=== PATIENT | female | born 1960 | race Caucasian/White ===

== ENCOUNTER 2022-07-27 07:30 | Outpatient (RCR) | payer OTHER, SELFPAY | END 2022-07-27 08:13 | disposition home or self-care (01) | PROVIDERS: PCP Family Medicine; Visit Provider Family Medicine | DX: M54.12 Radiculopathy, cervical region (principal); Z51.89 Encounter for other specified aftercare | CPT/HCPCS: 97012; 97110; 97112; 97140; 97161 ==

== ENCOUNTER 2023-04-26 08:00 | Outpatient (RCR) | payer OTHER, SELFPAY | END 2023-04-26 14:21 | disposition home or self-care (01) | PROVIDERS: PCP Family Medicine; Visit Provider Physician Assistant | DX: S69.92XD Unspecified injury of left wrist, hand and finger(s), subsequent encounter (principal); Z51.89 Encounter for other specified aftercare | CPT/HCPCS: 97035; 97110; 97140; 97165; 97535; X5282 ==

== ENCOUNTER 2024-01-18 02:28 | Emergency (ER) | payer OTHER, SELFPAY ==
[2024-01-18 02:37] VITALS: BP 145/84; PULSE 75; RESP 18; TEMP 36.7; O2SAT 97; BMI 32.4
--- NOTE | 2024-01-18 02:42 | ED.GENADULT ---
HPI - General Adult General Chief complaint: Hip Injury/Pain Stated complaint: did something to her L Hip - Unable to walk Time Seen by Provider: 01/18/24 02:36 History of Present Illness HPI narrative: CC: Left Hip Pain pt. woke up around 0030 and was doing some laundry when she felt a rip on her left thigh. partial weight bearing . denies fevers. 63-year-old woman presenting to the emergency depart with complaint of left thigh pain. No specific trauma but had been flexing, stooping, bending while doing some laundry. [place] a ?rip? in her left thigh area. No rash. Again no fall. Has not had injury otherwise. Finding it very difficult to even walk on it at this time. She has not been having significant back back issues. Pain is not radiating past the knee. Related Data Home Medications ?Medication ?Instructions ?Recorded ?Confirmed celecoxib 200 mg capsule 200 mg PO BID 01/18/24 01/18/24 conjugated estrogens 0.3 mg tablet 0.3 mg PO DAILY 01/18/24 01/18/24 (Premarin) diltiazem HCl 300 mg capsule,24 300 mg PO DAILY 01/18/24 01/18/24 hr,extended release sertraline 100 mg tablet 100 mg PO Q24H 01/18/24 01/18/24 Allergies Allergy/AdvReac Type Severity Reaction Status Date / Time Penicillins Allergy Mild Rash Verified 01/18/24 02:39 Review of Systems Status of ROS: Reports: 6 or more systems reviewed and unremarkable except as noted in History and below [facility] Social History Smoking Status: Never smoker Second hand tobacco smoke exposure: No How often do you have a drink containing alcohol: never AUDIT-C Alcohol total score: 0 Non-prescribed substance use: denies use Exam Narrative: Exam Narrative: Pleasant. Clearly very uncomfortable. Skin is warm and dry. I do not appreciate any swelling or erythema. Is reluctant with significant pain with any movement of her left hip. I do not feel any defect to palpation. Not clearly tender over the greater trochanter nor the SI joint. Good pulses/well-perfused distally. Const: Vital Signs, click to edit/add: Vital Signs - 24 hr 01/18/24 02:37 Temperature 98.1 F Pulse Rate [Right Pulse Oximeter] 75 Respiratory Rate 18 Blood Pressure [Ri ght Upper Arm] 145/84 H Pulse Oximetry 97 Oxygen Delivery Me thod Room Air Documenting provider has reviewed patient's vital signs: yes Course Vital Signs Vital signs: Initial Vital Signs Temperature 98.1 F 01/18/24 02:37 Temperature Source Temporal Artery Scan 01/18/24 02:37 Pulse Rate 75 01/18/24 02:37 Respiratory Rate 18 01/18/24 02:37 Blood Pressure 145/84 H 01/18/24 02:37 Blood Pressure Mean 104 01/18/24 02:37 Blood Pressure Position Sitting 01/18/24 02:37 Pulse Oximetry 97 01/18/24 02:37 Oxygen Delivery Method Room Air 01/18/24 02:37 Vital Signs Temperature 98.1 F 01/18/24 02:37 Pulse Rate 75 01/18/24 02:37 Respiratory Rate 18 01/18/24 02:37 Blood Pressure 145/84 H 01/18/24 02:37 Pulse Oximetry 97 01/18/24 02:37 Oxygen Delivery Method Room Air 01/18/24 02:37 Temperature 98.1 F 01/18/24 04:01 Pulse Rate 79 01/18/24 04:01 Respiratory Rate 18 01/18/24 04:01 Blood Pressure 135/74 01/18/24 04:01 Pulse Oximetry 96 01/18/24 03:56 Oxygen Delivery Method Room Air 01/18/24 03:56 Medications Administered Medications: Discontinued Medications Generic Name Dose Route Start Last Admin Trade Name Freq PRN Reason Stop Dose Admin Hydromorphone HCl 1 mg 01/18/24 02:54 01/18/24 03:02 Hydromorphone 0.5 Mg/0.5 Ml Inj IM 01/18/24 02:55 1 mg ONCE ONE Administration Medical Decision Making MDM Narrative Medical decision making narrative: Is quite anxious for immediate relief of her pain. I would offer injection of hydromorphone. Can do x-ray looking for any sort of avulsion fracture and confirming location of joint. I am wondering if may have happened here is result of rotational movement or flexion of the thigh resulting in resolved subluxation. Then subsequent muscle spasming. Appears to be in joint at this time. She is not discretely tender at hip flexors. X-ray of the left hip is unremarkable by my read. On reassessment is improved. More relaxed. I do not know that all be fully able to evaluate this hip at this time in the emergency department. Will need follow-up if this continues to be an issue. See patient discharge plan for further discussion. Discharge Plan Discharge Clinical Impression: Acute hip pain Patient Disposition: Home w/ Parent or Adult Condition: Stable Additional Instructions: Can use these crutches for comfort until further recommendations on follow-up. Since you have a relationship with Dr. Saenz, I think following up with him is an excellent idea. You could also be seen sooner with your primary if you need further help with pain management and/or it might be easier to do a better assessment at that point. I like those ice bags with the screw top lid--fill with ice and water. I would ice sore area 2-3 times daily over the next few days. [place] from [employer]. On the days you are using the [place], you might want to take a senna once or twice daily Can also take up to 800 mg of ibuprofen or up to 1000 mg of acetaminophen per dose. Alternative to the ibuprofen might be up to 500 mg naproxen 2 times daily. Prescriptions: No Action celecoxib 200 mg capsule 200 mg PO BID sertraline 100 mg tablet 100 mg PO Q24H diltiazem HCl 300 mg capsule,extended release 24 hr 300 mg PO DAILY Premarin 0.3 mg tablet 0.3 mg PO DAILY Follow Up/Referrals: Julia Chin MD [Primary Care Provider] - Stand Alone Forms: [employer] Info Instructions
--- NOTE | 2024-01-18 02:54 | CRLHL7_ITS ---
For Patients: As a result of the Century Cures Act, medical imaging exams and procedure reports are released immediately into your electronic medical record. You may view this report before your referring provider. If you have questions, please contact your health care provider. INDICATION: Left hip pain. TECHNIQUE: Pelvis and left hip 3 views. COMPARISON: None. FINDINGS: No acute fractures or malalignment. Joint spaces are maintained. Soft tissues are unremarkable. IMPRESSION: No acute osseous abnormality. Dictated by Manoj Mark MD @ 01/18/2024 3:42:46 AM (Electronically Signed)
[2024-01-18] MEDS: HYDROmorphone 0.5 mg/0.5 ml inj 1 MG IM (03:02)
[2024-01-18 03:03] VITALS: O2SAT 96
[2024-01-18 03:56] VITALS: BP 135/74; PULSE 79; RESP 18; TEMP 36.7; O2SAT 96
[2024-01-18 04:01] VITALS: BP 135/74; PULSE 79; RESP 18; TEMP 36.7
== END 2024-01-18 04:01 | disposition home or self-care (01) ==
PROVIDERS: Emergency Provider Family Medicine; PCP Family Medicine
DX: M25.552 Pain in left hip (principal)
CPT/HCPCS: 73502; 94761; 96372; 99283; 99284; J1170

== ENCOUNTER 2024-03-29 14:45 | Emergency (ER) | payer OTHER, SELFPAY ==
[2024-03-29] VITALS (7 sets, daily range): BP systolic 161–188; BP diastolic 85–111; PULSE 81–91; RESP 12–18; TEMP 36.5; O2SAT 95–96; BMI 32.7
--- NOTE | 2024-03-29 15:12 | ED_ITS ---
HPI - Chest Pain General Chief Complaint: Chest Pain Stated Complaint: heart attach symptoms Time Seen by Provider: 03/29/24 15:03 History of Present Illness HPI narrative: Patient is a 64-year-old woman with history of hypertension hyperlipidemia who presents 4 hours after having a 15 minute episode of anterior chest pain without radiation. She has had no nausea no vomiting no fevers no chills. Symptoms resolved spontaneously. She has not had any recent cardiac evaluation but sta funmilayo she had a negative stress test 10 years ago. Patient has no current symptoms and otherwise feels well. She has not had any limitations in her activity level due to chest pain recently. Related Data Home Medications ?Medication ?Instructions ?Recorded ?Confirmed celecoxib 200 mg capsule 200 mg PO BID 01/18/24 01/18/24 conjugated estrogens 0.3 mg tablet 0.3 mg PO DAILY 01/18/24 01/18/24 (Premarin) diltiazem HCl 300 mg capsule,24 300 mg PO DAILY 01/18/24 01/18/24 hr,extended release sertraline 100 mg tablet 100 mg PO Q24H 01/18/24 01/18/24 Allergies Allergy/AdvReac Type Severity Reaction Status Date / Time Penicillins Allergy Mild Rash Verified 01/18/24 02:39 Review of Systems Status of ROS Reports: 10 or more systems reviewed and unremarkable except as noted in History and below [facility] Medical History Hyperlipidemia ?E78.5 - Hyperlipidemia, unspecified (ICD-10) Hypertension ?I10 - Essential (primary) hypertension (ICD-10) Social History Smoking Status: Never smoker Second hand tobacco smoke exposure: No How often do you have a drink containing alcohol: never AUDIT-C Alcohol total score: 0 Non-prescribed substance use: denies use Exam Narrative Exam Narrative: EXAM GENERAL: Patient appears comfortable and well. EYES: No scleral icterus. LYMPH: No supraclavicular or cervical lymphadenopathy. SKIN: Visible skin seen during exam normal or with benign process only. EXT: No dependent lower extremity pedal edema. HEART: Regular rate and rhythm with no murmurs, rubs, or gallops. LUNGS: Clear to auscultation bilaterally with no crackles or wheezes. ABD: Soft, non tender, non distended. PSYCH: Good eye contact, speech is not pressured. Const Vital Signs, click to edit/add: Vital Signs - 24 hr 03/29/24 14:50 03/29/24 14:51 03/29/24 15:02 Temperature 97.7 F Pulse Rate 91 Pulse Rate [Pulse Oximeter] 86 Respiratory Rate 18 16 Blood Pressure 169/89 H Blood Pressure [Left Upper Arm] 188/111 H Pulse Oximetry 96 96 96 Oxygen Delivery Method Room Air 03/29/24 15:32 03/29/24 16:02 Temperature Pulse Rate 81 81 Pulse Rate [Pulse Oximeter] Respiratory Rate 12 14 Blood Pressure 168/87 H 161/85 H Blood Pressure [Left Upper Arm] Pulse Oximetry 95 95 Oxygen Delivery Method Course Course ED Course: Patient seen examined. EKG personally reviewed by me shows a rate of [address] or T-wave changes. Troponin CBC chest x-ray basic metabolic panel pending. Vital Signs Vital signs: Initial Vital Signs Respiratory Effort Normal, Spontaneous, Non-Labored 03/29/24 14:50 Respiratory Depth Normal 03/29/24 14:50 Respiratory Pattern Normal 03/29/24 14:50 Pulse Oximetry 96 03/29/24 14:50 Vital Signs Pulse Oximetry 96 03/29/24 14:50 Temperature 97.7 F 03/29/24 14:51 Pulse Rate 81 03/29/24 16:02 Respiratory Rate 14 03/29/24 16:02 Blood Pressure 161/85 H 03/29/24 16:02 Pulse Oximetry 95 03/29/24 16:02 Oxygen Delivery Method Room Air 03/29/24 14:51 MDM - Chest Pain MDM Narrative Medical decision making narrative: Patient is a 64-year-old woman who presents for hours after a 15 minute episode of chest pain. EKG is normal plan my review. Workup is unremarkable with normal troponin and chest x-ray. At this time I do not believe she has a cardiac etiology for her symptoms but she certainly has risk factors. I did recommend primary care follow-up. Differential diagnosis includes but not limited to non STEMI STEMI unstable angina pleurisy costochondritis. Lab Data Labs: Lab Results 03/29/24 Range/Units 15:00 WBC 6.13 (4.50-11.00) K/uL RBC 4.74 (4.00-5.20) m/uL Hgb 15.0 (12.0-16.0) gm/dL Hct 44.8 (33.0-51.0) % MCV 95 (80-100) fL MCH 32 (26-34) pg MCHC 34 (32-36) gm/dL RDW Coeff of Tony 12.1 (11.5-15.5) % Plt Count 266 (140-440) K/uL Neut % (Auto) 56.7 (42.0-72.0) % Lymph % (Auto) 28.4 (20-44) % [place] % (Auto) 8.0 (0.0-11.0) % Eos % (Auto) 5.4 (0.0-7.0) % Baso % (Auto) 0.7 (0.0-3.0) % Neut # (Auto) 3.48 (1.7-7.0) K/uL Lymph # (Auto) 1.74 (0.90-2.90) K/uL [place] # (Auto) 0.50 (0.00-0.90) K/UL Eos # (Auto) 0.33 (0.00-0.50) K/uL Baso # (Auto) 0.04 (0.00-0.30) K/uL Abs Immat Gran (auto) 0.05 (0.00-0.30) K/uL Imm/Tot Granulo (auto) 0.8 % Sodium 137 (135-149) mmol/L Potassium 3.8 (3.6-5.1) mmol/L Chloride 100 (96-114) mmol/L Carbon Dioxide 24 (20-32) mmol/L Anion Gap 13 (7-15) mEq/L BUN 18 (7-30) mg/dL Creatinine 0.8 (0.5-1.5) mg/dL Estimated Creat Clear 55.27 Estimated GFR 82 ml/min Glucose 98 (60-115) mg/dL Calcium 9.2 (8.4-10.6) mg/dL Troponin I < 0.01 L (0.01-0.04) ng/mL POC Troponin I 0.01 (0.01-0.04) ng/ml Discharge Plan Discharge Clinical Impression: Chest pain Patient Disposition: Home, Self-Care Condition: Stable Instructions: Chest Pain (ED) Additional Instructions: Continue current care Follow-up with your doctor within the next week or 2 to discuss recent symptoms. Activity Level: No Restrictions Discharge Diet: Regular Prescriptions: No Action celecoxib 200 mg capsule 200 mg PO BID sertraline 100 mg tablet 100 mg PO Q24H diltiazem HCl 300 mg capsule,extended release 24 hr 300 mg PO DAILY Premarin 0.3 mg tablet 0.3 mg PO DAILY Follow Up/Referrals: Julia Chin MD [Primary Care Provider] - Stand Alone Forms: [employer] Info Instructions
--- OUTSIDE RECORDS SUMMARY | 2024-03-29 15:26 | XMS_ITS | Clinical Summary ---
Author Organization [facility] Address [place], [place] [address] Care Team Providers Care Cnc Laser Operator Name Role Phone Julia Chin MD Primary Care Provide r Allergies Active Allergy Reactions Criticality Noted Date Comments Amlodipine Myalgia 11/19/2019 Achilles tendinitis Lisinopril Rash 03/18/2019 Penicillins Hives,Rash Low 01/18/2024 1980s, not sure of reaction. Medications Medication Sig Dispensed Refills Start Date End Date Status triamcinolone (ARISTOCORT; KENALOG) 0.1 % creamIndications:F olliculitis Apply topically to affected area(s) three times daily. Scalp rash 45 g 1 3 Active nystatin (MYCOSTATIN) creamIndications:Y east infection of the skin Apply topically to affected area(s) two times daily. 30 g 1 3 Active Premarin 0.3 mg tabletIndications: Menopausal symptoms TAKE 1 TABLET DAILY 90 Tablet 3 4 Active fluticasone (50 mcg per actuation) nasal solution (FLONASE)Indicatio ns:Nasal congestion Inhale 2 Sprays to both nostrils two times daily. 48 g 3 4 Active sertraline (ZOLOFT) 100 mg tabletIndications: Depression, major, single episode, mild (HC) Take 1 1/2 tablets or 150 mg daily 135 Tablet 3 4 Active diltiazem CD (CARDIZEM CD) 360 mg extended release 24 hr capsuleIndications :HTN (hypertension) Take 1 Capsule (360 mg) by mouth once daily. 90 Capsule 3 4 Active naltrexone (REVIA) 50 mg tabletIndications: Alcohol use disorder Take 1 Tablet (50 mg) by mouth once daily. 30 Tablet 3 4 Active budesonide-formote roL (SYMBICORT) 160-4.5 mcg/actuation (160-4.5 mcg each actuation) inhalerIndications :Cough, unspecified type Inhale 2 Puffs by mouth two times daily. Inhale 2 puffs twice daily and 1-2 puffs every 4 hours as needed for asthma exacerbations . Max of 8 puffs per day. 1 Each 4 Active hydroCHLOROthiazid e 12.5 mg tabletIndications: HTN (hypertension) Take 1 Tablet (12.5 mg) by mouth once daily. 30 Tablet 3 4 Active rosuvastatin (CRESTOR) 10 mg tabletIndications: Hyperlipidemia, unspecified hyperlipidemia type Take 1 Tablet (10 mg) by mouth at bedtime. 90 Tablet 3 4 Active fluticasone (50 mcg per actuation) nasal solution (FLONASE)Indicatio ns:Nasal congestion SHAKE LIQUID AND USE 2 SPRAYS IN EACH NOSTRIL TWICE DAILY 48 g 3 2 03/12/20 24 Discontinued(Reo rder (E-cancel not sent)) estrogens conjugated (Premarin) 0.3 mg tabletIndications: Menopausal symptoms Take 1 Tablet (0.3 mg) by mouth once daily. 90 Tablet 3 3 03/12/20 24 Discontinued sertraline (ZOLOFT) 100 mg tabletIndications: Depression, major, single episode, mild (HC) Take 1 1/2 tablets or 150 mg daily 135 Tablet 3 3 03/12/20 24 Discontinued(Reo rder (E-cancel not sent)) trimethoprim-polym yxin b (POLYTRIM) ophthalmic solutionIndication s:Conjunctivitis of both eyes, unspecified conjunctivitis type Place 1 Drop into right eye four times daily. 10 mL 3 03/12/20 24 Discontinued(*Pa tient states no longer taking) diltiazem CR (TIAZAC; TAZTIA XT) 300 mg capsuleIndications :HTN (hypertension) Take 1 Capsule (300 mg) by mouth once daily. 90 Capsule 3 4 03/12/20 24 Discontinued(*Me dication adjustment) celecoxib (CELEBREX) 200 mg capsuleIndications :Hamstring tendonitis of right thigh Take 1 Capsule (200 mg) by mouth two times daily with meals. 60 Capsule 1 4 03/04/20 24 Discontinued celecoxib (CELEBREX) 200 mg capsuleIndications :Hamstring tendonitis of right thigh TAKE 1 CAPSULE(200 MG) BY MOUTH TWICE DAILY WITH MEALS 60 Capsule 1 4 03/12/20 24 Discontinued(*Me d complete/Regimen complete/Level of care change) Active Problems Problem Noted Date Diagnosed Date Colon polyp 12/28/2022 Overview: Colonoscopy 12/2022 TA, repeat in 7 years Diverticulosis of colon (without mention of hemo rrhage) 08/14/2011 Overview: Colonoscopy 08/2011 diverticulosis repeat in 10 years Endometrial cancer 12/28/2010 Post hysterectomy menopause 12/28/2010 Degeneration of cervical intervertebral disc 03/2010 Pain in joint, lower leg 05/01/2007 Resolved Problems Problem Noted Date Diagnosed Date Resolved Date Complex endometrial hyperplasia with atypia 10/24/2010 12/28/2010 Encounters Date Type Department Care Team Description 03/24/2024 Refill [facility] [address] [place] [address] Julia Chin MD Refill Request (Hydrochlorothiazide) 03/16/2024 11:20 AM CDT Office Visit [facility] [address] [place] [address] Rob Muñoz MD Musculoskeletal Problem (Follow-up LEFT Hip pain/Review MRI) 03/16/2024 Travel 03/12/2024 9:55 AM CDT Office Visit [facility] [address] [place] [address] Julia Chin MD Physical (64 yo Female/Blood pressure/Balance not as a big of a concern, kids.) 03/12/2024 Travel 03/10/2024 Refill [facility] [address] [place] [address] Julia Maguire MD Refill Request (Premarin) 03/05/2024 Telephone [facility] [address] [place] [address] Rob Muñoz MD Results (MRI) 03/03/2024 8:15 AM CDT Ancillary Procedure [address] [address] 03/03/2024 Travel 03/03/2024 Refill [facility] [address] [place] [address] Rob Muñoz MD Refill Request (Celecoxib) 02/26/2024 10:00 AM CDT Office Visit [facility] [address] [place] [address] Rob Muñoz MD Musculoskeletal Problem (Consult left hip injury date of injury: 01/18/24) 02/26/2024 Travel 02/19/2024 Telephone [facility] [address] [place] [address] Rob Muñoz MD Appointment Request (LEFT HIP PAIN ) 01/20/2024 7:20 AM CDT Office Visit [facility] [address] [place] [address] Citlali Tobin PA Musculoskeletal Problem 01/20/2024 Travel 01/18/2024 Orders Only [facility] Scanner 1 scan: (1-Ord) BRII, XR HIP LT MIN 2V, 01/18/2024 01/01/2024 1:20 PM CDT Office Visit [facility] [address] [place] [address] Rob Muñoz MD Musculoskeletal Problem (Consult bilateral knee pain, per Citlali MCKINLEY) 01/01/2024 Travel 12/30/2023 7:30 AM CDT Ancillary Procedure [address] [address] 12/30/2023 Travel from Last 3 Months Immunizations Name Administration Dates Next Due AMB Influenza, IIV4 PF (=>6 mos Flulaval,Fluzone Fluarix)(Flu Clinic Only) 04/26/2020,06/05/2019,06/05/2018 DTaP 04/13/2008 Influenza, IIV4 05/17/2021,06/18/2017,05/03/2016 Influenza,CCIIV4 PRESERV FREE 05/19/2022 Tdap 05/03/2016,04/13/2008 Zoster (Shingrix-RZV, recombinant) 06/16/2020, Family History Medical History Relation Name Comments Diabetes Father Heart Disease Father chf, MIs Heart Disease Mother Other Mother Alzheimers, ost eoporosis Thyroid Disease Mother Cancer Paternal Grandfather Cancer-breast No Family History Cancer-ovarian No Family History Relation Name Status Comments Brother 1 Alive Brother 2 Alive Daughter 1 Alive Daughter 2 Alive Daughter 3 Alive Father Alive Maternal Grandfather Maternal Grandmother Mother Paternal Grandfather Paternal Grandmother Social History Tobacco Use Types Packs/Day Years Used Date Smoking Tobacco: Former Cigarettes 0.3 3 0 08/12/1977 - 08/12/1980 Smokeless Tobacco: Never Tobacco Cessation:Counseling Given: Yes Alcohol Use Standard Drinks/Week Comments Yes 21 (1 standard drink = 0.6 oz pu re alcohol) PHQ-2 Answer Date Recorded PHQ-2 TOTAL SCORE 4 03/12/2024 Social Connections Answer Date Recorded Frequency of Communication with Friends and Fami ly 0 12/27/2023 Financial Resource Strain Answer Date R ecorded Difficulty of Paying Living Expenses 3 12/27/2023 Difficulty of Paying Living Expenses Not on file 12/27/2023 Food Insecurity Answer Date Recorded Worried About Running Out of Food in the Last Ye ar 1 12/27/2023 Transportation Needs Answer Date Record ed Lack of Transportation (Medical) 1 12/27/2023 Housing Stability Answer Date Recorded Unable to Pay for Housing in the Last Year 1 12/27/2023 Sex and Gender Information Value Date Recorded Sex Assigned at Not on file Gender Identity Not on file Sexual Orientation Not on file Obstetrics History Para Term AB IAB SAB Ectopic Multiple Livin g Live Births 4 3 3 Date Outcome GA Total Labor Labor/2nd/3rd Weight Sex Type Anes PTL Keyanna A1 A5 Name Clin Term Term Term Last Filed Vital Signs Vital Sign Reading Time Taken Comments Blood Pressure 175/101 03/16/2024 11:25 AM CDT Pulse 84 03/16/2024 11:25 AM CDT Temperature 36.7 ??C (98.1 ??F) 02/26/2024 10:08 AM C DT Respiratory Rate 16 12/27/2022 8:45 AM CDT Oxygen Saturation 96% 03/16/2024 11:25 AM CDT Inhaled Oxygen Concentration - - Weight 94.1 kg (207 lb 6.4 oz) 03/28/2023 12:16 PM CDT Height 168.9 cm (5' 6.5) 03/28/2023 12:16 PM CD T Body Mass Index 32.97 03/28/2023 12:16 PM CDT Plan of Treatment Health Maintenance Due Date Last Done Comments COVID-19 vaccine series ( season) 2023 05/19/2022, 11/24/2021, 07/12/2021, Additional history exists BMI (ht and wt on same day) for age 18+ 03/28/2024 03/28/2023, 11/28/2021, 07/28/2021, Additional history exists Mammogram for age 45-75 03/28/2024 03/28/20 23, 02/16/2022, 10/17/2020, Additional history exists Influenza for age 50-64 04/12/2024 05/19/20 22, 05/17/2021, 04/26/2020, Additional history exists Depression screening for age 12+ 03/16/2025 03/16/2024, 03/12/2024, 03/28/2023, Additional history exists Tetanus booster 05/03/2026 05/03/2016, 04/13 (Completed outside of [facility]), 04/13/2008 Lipids for age 45-75 03/12/2029 03/12/2024, 03/04/2019, 04/25/2015, Additional history exists Colonoscopy through age 75 12/27/202912/27, 12/27/2022, 08/14/2011, Additional history exists HIV for age 15-65 Completed 08/07/2013, 05/25/2013 Hepatitis C screening for age 18-79 Completed 08/07/2013, 05/25/2013 Tdap Completed 05/03/2016, 04/13/2008 Zoster (shingles) series for age 50+ Completed 06/16/2020, 03/25/2020 Pneumococcal series for age 6-64 Aged Out No longer eligible based on patient's age to complete this topic Procedures Procedure Name Priority Date/Time Associated Diagnosis Comments CBC WITH AUTO DIFFERENTIAL Routine 03/12/2024 12:07 PM CDT HTN (hypertension) CBC WITH AUTO DIFFERENTIAL Routine 03/12/2024 12:07 PM CDT HTN (hypertension) COMP METABOLIC PANEL Routine 03/12/2024 12:07 PM CDT HTN (hypertension) LIPID PANEL W REFLEX MEASURED LDL Routine 03/12/2024 12:07 PM CDT HTN (hypertension) MR HIP LEFT WO Routine 03/03/2024 8:32 AM CDT Hip strain, left, sequela Gluteal tendonitis of left buttock SCAN-RADIOLOGY REPORT 01/18/2024 12:00 AM CDT US VENOUS LOWER EXTREMITY RIGHT FLORI 12/30/2023 7:58 AM CDT Chronic pain of right knee Arthritis of right knee XR MAMMO RITESH BILAT DIAG FLORI 03/28/2023 2:48 PM CDT Breast lump on right side at 11 o'clock position COLONOSCOPY 12/27/2022 7:50 AM CDT ANTI HIV 1/2 Routine 08/07/2013 10:19 AM [employer]BILE SALES ASSISTANT Screen for STD (sexually transmitted disease) ANTI HCV Routine 08/07/2013 10:19 AM [employer]BI[employer] SALES ASSISTANT Screen for STD (sexually transmitted disease) from Last 3 Months or Most Recently Relevant to Health Maintenance Results * (ABNORMAL) CBC WITH AUTO DIFFERENTIAL (03/12/2024 12:07 PM CDT) WHITE BLOOD COUNT 5.9 4.5 - 11.0 thou/cu mm 03/12/2024 12:18 PM CDT [facility] RED BLOOD COUNT 4.39 4.00 - 5.20 mil/cu mm 03/12/2024 12:18 PM CDT [facility] HEMOGLOBIN 14.5 12.0 - 16.0 g/dL 03/12/2024 12:18 PM CDT [facility] HEMATOCRIT 42.4 33.0 - 51.0 % 03/12/2024 12:18 PM CDT [facility] MCV 97 80 - 100 fL 03/12/2024 12:18 PM CDT [facility] MCH 33.0 26.0 - 34.0 pg 03/12/2024 12:18 PM CDT [facility] MCHC 34.2 32.0 - 36.0 g/dL 03/12/2024 12:18 PM CDT [facility] RDW 13.0 11.5 - 15.5 % 03/12/2024 12:18 PM CDT [facility] PLATELET COUNT 230 140 - 440 thou/cu mm 03/12/2024 12:18 PM CDT [facility] MPV 9.5 6.5 - 11.0 fL 03/12/2024 12:18 PM CDT [facility] % NEUT 54.2 % 03/12/2024 12:18 PM CDT [facility] % LYMPH 26.9 % 03/12/2024 12:18 PM CDT [facility] % MONO 9.8 % 03/12/2024 12:18 PM CDT [facility] % EOS 8.3 % 03/12/2024 12:18 PM CDT [facility] % BASO 0.8 % 03/12/2024 12:18 PM CDT [facility] ABSOLUTE NEUTROPHILS 3.2 1.7 - 7.0 thou/cu mm 03/12/2024 12:18 PM CDT [facility] ABSOLUTE LYMPHOCYTES 1.6 0.9 - 2.9 thou/cu mm 03/12/2024 12:18 PM CDT [facility] ABSOLUTE MONOCYTES 0.6 <0.9 thou/cu mm 03/12/2024 12:18 PM CDT [facility] ABSOLUTE EOSINOPHILS 0.5(H) <0.5 thou/cu mm 03/12/2024 12:18 PM CDT [facility] ABSOLUTE BASOPHILS 0.1 <0.3 thou/cu mm 03/12/2024 12:18 PM CDT [facility] Blood BLOOD SPECIMEN / Unknown Venipuncture / Unknown 03/12/2024 12:07 PM CDT 03/12/2024 12:08 PM CDT Julia Chin MD HEMATOLOGY [facility] [address] [place] [address], [place] [phone] * (ABNORMAL) LIPID PANEL W REFLEX MEASURED LDL (03/12/2024 12:07 PM CDT) CHOLESTEROL,TOTAL 262(H) 100 - 199 mg/dL 03/13/2024 5:00 AM CDT [facility] Comment: Cholesterol, Total Reference Ranges Desirable <200 mg/dL Borderline 200-239 mg/dL High >=240 mg/dL TRIGLYCERIDES 76 <150 mg/dL 03/13/2024 5:00 AM CDT [facility] HDL CHOLESTEROL 87 >40 mg/dL 5:00 AM T [facility] NON-HDL CHOLESTEROL 175(H) <145 mg/dl 03/13/2024 5:00 AM CDT [facility] CHOL/HDL RATIO 3.01 <4.50 03/13/2024 5:00 AM T [facility] LDL CHOLESTEROL 160(H) <=130 mg/dL 03/13/2024 5:00 AM T [facility] VLDL CHOLESTEROL 15 <=30 mg/dL 03/13/2024 5:00 AM T [facility] PROVIDER ORDERED STATUS RANDOM 03/13/2024 5:00 AM CDT [facility] Blood BLOOD SPECIMEN / Unknown Venipuncture / Unknown 03/12/2024 12:07 PM CDT 03/12/2024 12:08 PM CDT Julia Chin MD CHEMISTRY [facility] [address] [place] [address], * (ABNORMAL) COMP METABOLIC PANEL (03/12/2024 12:07 PM CDT) SODIUM 140 136 - 145 mmol/L 03/13/2024 5:00 AM [facility] POTASSIUM 4.4 3.5 - 5.1 mmol/L 03/13/2024 5:00 AM [facility] CHLORIDE 103 98 - 107 mmol/L 03/13/2024 5:00 AM [facility] CO2,TOTAL 23 22 - 29 mmol/L 03/13/2024 5:00 AM [facility] ANION GAP 14 5 - 18 03/13/2024 5:00 AM [facility] GLUCOSE 94 70 - 99 mg/dL 03/13/2024 5:00 AM [facility] CALCIUM 9.2 8.8 - 10.2 mg/dL 03/13/2024 5:00 AM [facility] BUN 15 8 - 23 mg/dL 03/13/2024 5:00 AM [facility] CREATININE 0.79 0.50 - 0.90 mg/dL 03/13/2024 5:00 AM [facility] BUN/CREAT RATIO 19 10 - 20 5:00 AM [facility] eGFR 84(L) >90 mL/min/1.7 3m2 03/13/2024 5:00 AM [facility] Comment:As of 2021, eG FR is calculated by the CKD-EPI creatinine equation without race adjustment. ??eGFR can be influenced by muscle mass, exercise, and diet. ??The reported eGFR is an estimation only and is only applicable if the renal function is stable. ALBUMIN 4.4 4.0 - 4.9 g/dL 03/13/2024 5:00 AM CDT [facility] PROTEIN,TOTAL 7.4 6.0 - 8.0 g/dL 03/13/2024 5:00 AM CDT [facility] BILIRUBIN,TOTAL 0.4 0.0 - 1.2 mg/dL 03/13/2024 5:00 AM CDT [facility] ALK PHOSPHATASE 80 35 - 104 IU/L 03/13/2024 5:00 AM CDT [facility] ALT (SGPT) 34 10 - 35 IU/L 03/13/2024 5:00 AM CDT [facility] AST (SGOT) 30 10 - 35 IU/L 03/13/2024 5:00 AM CDT [facility] Blood BLOOD SPECIMEN / Unknown Venipuncture / Unknown 03/12/2024 12:07 PM CDT 03/12/2024 12:08 PM CDT Julia Chin MD [facility] [address] [place] [address], * MR HIP LEFT WO CONTRAST (03/03/2024 8:32 AM CDT) Anatomical Region Laterality Modality HIPL Magnetic Resonan ce 03/03/2024 3:42 PM CDT Impressions 03/03/2024 3:42 PM CDT 1. On the left, there is peritrochanteric edema. Edema is present within the gluteus medius muscle which may relate to low-grade muscle strain or muscle contusion. No tear of the distal tendon. 2. Degenerative changes of the left hip with high-grade cartilage wear posterior superiorly (grade 3). 3. No fracture or AVN. 4. Mild tendinosis of the left common hamstring tendon without tendon tear. Dictated by Troy Guerra MD @ 03/03/2024 3:42:04 PM (Electronically Signed) Narrative 03/03/2024 3:42 PM CDT For Patients: ??As a result of the Cures Act, medical imaging exams and procedure reports are released immediately into your electronic medical record. ??You may view this report before your referring provider. ??If you have questions, please contact your health care provider. CLINICAL INDICATION: Left hip strain. Hip pain. Gluteal tendinitis. COMPARISON IMAGING STUDIES: None. TECHNICAL: Axial, sagittal and coronal PDFS small field of view images of the left hip. ??Coronal and axial T1 and PDFS large field of view images of the entire pelvis. ??1.5 Thi MR scanner. ?? FINDINGS: LEFT HIP: There is an osseous bump involving the upper femoral neck anterosuperiorly on axial T1 image number 35 series 4 indicating cam morphology. No definite acetabular retroversion. Small amount of fluid within the left hip joint space posteriorly. High-grade articular cartilage wear is present posterior superiorly as seen on sagittal PD fat-sat image number 17 of series 7 (grade 3). Chondral labral junction degeneration is noted superior laterally with high-grade cartilage fissuring at the junction. Mildly attenuated anterior aspect of the superolateral acetabular labrum with blunted free edge. RIGHT HIP: Mild cam morphology of the right proximal femur. No focal superior acetabular retroversion. No right hip joint effusion. Chondrolabral junction degeneration is noted superolaterally. Mild thinning of the articular cartilage (grade 2). OSSEOUS STRUCTURES: There is no acute fracture. No avascular necrosis of either femoral head. Areas of intermediate marrow signal most likely reflect red marrow. They appear symmetric right to left. MUSCULOTENDINOUS STRUCTURES AND BURSAE: On the left, there is peritrochanteric edema noted adjacent to the greater trochanter. Interstitial muscle edema is present within a portion of the gluteus medius muscle which may relate to muscle strain or muscle contusion. There is no significant tear of the distal gluteus medius tendon. No tear of the distal gluteus minimus tendon. Contralateral right-sided gluteal tendons are intact. Mild tendinosis of the left common hamstring tendon without significant tendon tear. Right common hamstring tendon is intact. Distal iliopsoas tendons are intact. OTHER FINDINGS: None. INTRAPELVIC CONTENTS: Prior hysterectomy. Colonic diverticulosis. Procedure Note Troy Guerra MD - 03/03/2024 For Patients: As a result of the Cures Act, medical imagingexams and procedure reports are released immediately into your electronicmedical record. You may view this report before your referring provider.If you have questions, please contact your health care provider. CLINICAL INDICATION: Left hip strain. Hip pain. Gluteal tendinitis. COMPARISON IMAGING STUDIES: None. TECHNICAL: Axial, sagittal and coronal PDFS small field of view images of the lefthip. Coronal and axial T1 and PDFS large field of view images of theentire pelvis. 1.5 Thi MR scanner. FINDINGS: LEFT HIP: There is an osseous bump involving the upper femoral neck anterosuperiorlyon axial T1 image number 35 series 4 indicating cam morphology. Nodefinite acetabular retroversion. Small amount of fluid within the lefthip joint space posteriorly. High-grade articular cartilage wear ispresent posterior superiorly as seen on sagittal PD fat-sat image [id number] of series 7 (grade 3). Chondral labral junction degeneration is notedsuperior laterally with high-grade cartilage fissuring at the junction.Mildly attenuated anterior aspect of the superolateral acetabular labrumwith blunted free edge. RIGHT HIP: Mild cam morphology of the right proximal femur. No focal superioracetabular retroversion. No right hip joint effusion. Chondrolabraljunction degeneration is noted superolaterally. Mild thinning of thearticular cartilage (grade 2). OSSEOUS STRUCTURES: There is no acute fracture. No avascular necrosis of either femoral head.Areas of intermediate marrow signal most likely reflect red marrow. Theyappear symmetric right to left. MUSCULOTENDINOUS STRUCTURES AND BURSAE: On the left, there is peritrochanteric edema noted adjacent to the greatertrochanter. Interstitial muscle edema is present within a portion of thegluteus medius muscle which may relate to muscle strain or musclecontusion. There is no significant tear of the distal gluteus mediustendon. No tear of the distal gluteus minimus tendon. Contralateralright-sided gluteal tendons are intact. Mild tendinosis of the left commonhamstring tendon without significant tendon tear. Right common hamstringtendon is intact. Distal iliopsoas tendons are intact. OTHER FINDINGS: None. INTRAPELVIC CONTENTS: Prior hysterectomy. Colonic diverticulosis. IMPRESSION: 1. On the left, there is peritrochanteric edema. Edema is present withinthe gluteus medius muscle which may relate to low-grade muscle strain ormuscle contusion. No tear of the distal tendon. 2. Degenerative changes of the left hip with high-grade cartilage wearposterior superiorly (grade 3). 3. No fracture or AVN. 4. Mild tendinosis of the left common hamstring tendon without tendontear. Dictated by Troy Guerra MD @ 03/03/2024 3:42:04 PM (Electronically Signed) Rob Muñoz MD MR * SCAN-RADIOLOGY REPORT (01/18/2024 12:00 AM CDT) Anatomical Region Laterality Modality Other Scanner OTHER * US VENOUS LOWER EXTREMITY RIGHT (12/30/2023 7:58 AM CDT) Anatomical Region Laterality Modality LEGS, LEG R, Abdomen Ultrasound 12/30/2023 8:39 AM CDT Impressions 12/30/2023 8:39 AM CDT Normal right lower extremity venous ultrasound, no sign of deep venous thrombosis. Dictated by John Vizcarra MD @ 12/30/2023 8:39:26 AM (Electronically Signed) Narrative 12/30/2023 8:39 AM CDT For Patients: ??As a result of the 21st Century Cures Act, medical imaging exams and procedure reports are released immediately into your electronic medical record. ??You may view this report before your referring provider. ??If you have questions, please contact your health care provider. INDICATION: Leg pain and swelling TECHNIQUE: Ultrasound venous duplex lower right extremity. ??Compression venous exam was performed using curtis-scale, color Doppler, and spectral Doppler imaging. COMPARISON: None. FINDINGS: Sonographic imaging demonstrates the right common femoral, deep femoral, superficial femoral, popliteal, posterior tibial and greater saphenous and the contralateral left common femoral veins to be fully compressible with normal color Doppler blood flow. ?? Procedure Note John Vizcarra MD - 12/30/2023 For Patients: As a result of the Cures Act, medical imagingexams and procedure reports are released immediately into your electronicmedical record. You may view this report before your referring provider.If you have questions, please contact your health care provider. INDICATION: Leg pain and swelling TECHNIQUE: Ultrasound venous duplex lower right extremity. Compression venous examwas performed using curtis-scale, color Doppler, and spectral Dopplerimaging. COMPARISON: None. FINDINGS: Sonographic imaging demonstrates the right common femoral, deep femoral,superficial femoral, popliteal, posterior tibial and greater saphenous andthe contralateral left common femoral veins to be fully compressible withnormal color Doppler blood flow. IMPRESSION: Normal right lower extremity venous ultrasound, no sign of deep venousthrombosis. Dictated by John Vizcarra MD @ 12/30/2023 8:39:26 AM (Electronically Signed) Citlali [facility]CK[facility] US * XR MAMMO RITESH BILAT DIAG (03/28/2023 2:48 PM CDT) Anatomical Region Laterality Modality BREASTS, Breast Left, Breast Right Bilateral Mammography Impressions 03/28/2023 4:10 PM CDT Normal BILATERAL mammograms and normal targeted RIGHT breast ultrasound. No evidence of malignancy. RECOMMENDATIONS: Annual BILATERAL screening mammography. Results and recommendations discussed with the patient. BI-RADS Category 2: ??Benign Dictated by: Stan Frausto MD @03/28/2023 3:06:08 PM / CRL:jj PATIENTS: You will also receive a letter with your examination results in an easy to read format. ??If you have questions about your results, please contact your referring provider. Narrative 03/28/2023 4:10 PM CDT For Patients: As a result of the Cures Act, medical imaging exams and procedure reports are released immediately into your electronic medical record. ??You may view this report before your referring provider. ?? If you have questions, please contact your health care provider. DIGITAL DIAGNOSTIC BILATERAL MAMMOGRAM USING TOMOSYNTHESIS AND COMPUTER-AIDED DETECTION, 03/28/2023 RIGHT BREAST ULTRASOUND, 03/28/2023 CLINICAL HISTORY: RIGHT breast lump. COMPARISON: 02/16/2022, 10/17/2020, 04/24/2018 TECHNIQUE: Digital BILATERAL mammogram in four projections. Tomosynthesis and CAD utilized. Real-time ultrasound imaging of RIGHT breast with imaging documentation. BREAST COMPOSITION: The breasts are heterogeneously dense, which may obscure small masses. FINDINGS: 3D CC/MLO BILATERAL mammogram images submitted. No suspicious masses or architectural distortion. No suspicious calcifications. Targeted ultrasound RIGHT breast 11 o'clock 7 cm from the nipple performed. No fibrocystic changes or solid masses. Julia Chin MD MAMMO * COLONOSCOPY (12/27/2022 7:50 AM CDT) 12/27/2022 7:50 AM CDT Narrative Transcriptions Mauri Phillips MD - 12/27/2022 8:35 AM CDT Patient Name: Dahlia Baldwin Procedure Date: 12/27/2022 Gender: Female Date of : 1960 Admit Type: Outpatient Procedure: Colonoscopy Proceduralist: Mauri Phillips MD , Sakina Hunter (Nurse), Rea Fernandez (Nurse) Indications/Pre-Op Diagnosis: Screening for colorectal malignant neoplasm, Last colonoscopy: August 2011 Medications: Fentanyl 100 micrograms IV, Midazolam 4 mgIV, The level of sedation administered wasmoderate Procedure Description: The patient had risks, benefits and alternatives explained to andgave informed consent. The patient had a stable cardiopulmonary status and judged an adequate candidate for conscious sedation. The endoscope PCF-[id number] was passed through the anus andadvanced to the cecum, identified by appendiceal orifice and ileocecal valve.The colonoscopy was performed without difficulty. The patient toleratedthe procedure well. The quality of the bowel preparation was good. The ileocecal valve, appendiceal orifice, and rectum were photographed. Complications: No immediate complications. Estimated Blood Loss & Specimen: Estimated blood loss: none. Specimen collected - Yes and sent to Laboratory Findings: The perianal and digital rectal examinations were normal. A 2 mm polyp was found in the appendiceal orifice. The polyp was sessile. The polyp was removed with a cold snare. Resection was complete, but the polyp tissue was not retrieved. A 2 mm polyp was found in the transverse colon. The polyp wassessile. The polyp was removed with a cold snare. Resection and retrieval were complete. There was a medium-sized lipoma, in the proximal ascending colon. Scattered small and large-mouthed diverticula were found in thesigmoid colon and descending colon. There was narrowing of the colon in association with the diverticular opening. The exam was otherwise without abnormality on direct and retroflexion views. Impressions/Post-Op Diagnosis: - One 2 mm polyp at the appendiceal orifice, removed with a coldsnare. Complete resection. Polyp tissue not retrieved. - One 2 mm polyp in the transverse colon, removed with a cold snare. Resected and retrieved. - Medium-sized lipoma in the proximal ascending colon. - Moderate diverticulosis in the sigmoid colon and in the descending colon. There was narrowing of the colon in association with the diverticular opening. - The examination was otherwise normal on direct and retroflexionviews. Recommendation: - Patient has a contact number available for emergencies. The signsand symptoms of potential delayed complications were discussed with the patient. Return to normal activities tomorrow. Written discharge instructions were provided to the patient. - Resume previous diet. - Continue present medications. - Await pathology results. - Repeat colonoscopy is recommended. The colonoscopy date will be determined after pathology results from today's exam become available for review. Moderate Sedation: A time out was performed before the procedure. Moderate (conscious) sedation was administered by the endoscopy nurse and supervised bythe endoscopist. The following parameters were monitored: oxygensaturation, heart rate, blood pressure, EKG, CO2, respiratory rate, adequacy of pulmonary ventilation and reponse to care. Please refer to the patient's medical record flowsheets and nursing notes for moderate sedation details. Total physician intraservice time was 21 minutes. Mauri Phillips MD 12/27/2022 8:35:28 AM This report has been signed electronically. Note Initiated On: 12/27/2022 7:50 AM Procedure Code(s): --- Professional --- 80973, Colonoscopy, flexible; with removalof tumor(s), polyp(s), or other lesion(s) bysnare technique Diagnosis Code(s): --- Professional --- Z12.11, Encounter for screening formalignant neoplasm of colon D12.1, Benign neoplasm of appendix D12.3, Benign neoplasm of transverse colon (hepatic flexure or splenic flexure) D17.5, Benign lipomatous neoplasm of intra-abdominal organs K57.30, Diverticulosis of large intestine without perforation or abscess withoutbleeding CPT copyright 2021 [employer]. All rights reserved. The codes documented in this report are preliminary and upon utility arborist reviewmay be revised to meet current compliance requirements. Scope In: 8:08:41 AM Scope Withdrawal Time 0 hours 9 minutes 11 seconds Scope Out: 8:27:15 AM Mauri Phillips MD PROCEDURE ORD * ANTI HCV (08/07/2013 10:19 AM MOBILE SALES ASSISTANT) ANTI HCV Non-reacti ve [facility] Blood specimen (specimen) BLOOD SPECIMEN / Unknown 08/07/2013 10:19 AM MOBILE SALES ASSISTANT 08/07/2013 10:03 AM MOBILE SALES ASSISTANT Sharon MCKINLEY SEND OUTS [facility] INTERNAL ZIP [address] [place] [id number] * ANTI HIV 1/2 (08/07/2013 10:19 AM MOBILE SALES ASSISTANT) ANTI HIV 1/2 Non-reacti ve [facility] Blood specimen (specimen) BLOOD SPECIMEN / Unknown 08/07/2013 10:19 AM MOBILE SALES ASSISTANT 08/07/2013 10:03 AM MOBILE SALES ASSISTANT Sharon MCKINLEY SEND OUTS [facility] INTERNAL ZIP [address] [place] [id number] from Last 3 Months or Most Recently Relevant to Health Maintenance Advance Directives * Full Code (Latest Code Status on File) Date Activated Date Inactivated Comments 11/20/2010 10:49 AM 11/21/2010 5:25 PM * Full Code Date Activated Date Inactivated Comments 11/20/2010 7:35 AM 11/20/2010 10:49 AM Care Teams Cnc Laser Operator Relationship Specialty Start Date End Date Julia Chin MD [address] [place] [address] PCP - General 02/05/06
--- NOTE | 2024-03-29 16:00 | CRLHL7_ITS ---
For Patients: As a result of the Century Cures Act, medical imaging exams and procedure reports are released immediately into your electronic medical record. You may view this report before your referring provider. If you have questions, please contact your health care provider. Indication: : Chest pain TECHNIQUE: Single-view chest. FINDINGS: The lungs are clear. The heart, mediastinum and pulmonary vessels are of normal size. There is no evidence of pleural disease. IMPRESSION: Negative chest. Dictated by Cynthia Gonzales MD @ 03/29/2024 5:10:04 PM (Electronically Signed)
[2024-03-29 16:08] LABS: Basophils Absolute Auto 0.04 K/uL (0.00-0.30); Basophils Percent Auto 0.7 % (0.0-3.0); Eosinophils Absolute Auto 0.33 K/uL (0.00-0.50); Eosinophils Percent Auto 5.4 % (0.0-7.0); Hematocrit 44.8 % (33.0-51.0); Immature Granulocytes Abs Auto 0.05 K/uL (0.00-0.30); Immature Granulocytes Pct Auto 0.8 %; Lymphocytes Absolute Auto 1.74 K/uL (0.90-2.90); Lymphocytes Percent Auto 28.4 % (20-44); Mean Corpuscular HGB Conc 34 gm/dL (32-36); Mean Corpuscular Hemoglobin 32 pg (26-34); Mean Corpuscular Volume 95 fL (80-100); Neutrophils Absolute Auto 3.48 K/uL (1.7-7.0); Neutrophils Percent Auto 56.7 % (42.0-72.0); Platelet Count* 266 K/uL (140-440); RDW Coefficient of Variation % 12.1 % (11.5-15.5); Red Blood Count 4.74 m/uL (4.00-5.20); White Blood Count* 6.13 K/uL (4.50-11.00)
[2024-03-29 16:11] LABS: Slide Review Reflex No
[2024-03-29 16:20] LABS: Chloride* 100 mmol/L (96-114); Potassium* 3.8 mmol/L (3.6-5.1); Sodium* 137 mmol/L (135-149)
[2024-03-29 16:23] LABS: Anion Gap 13 mEq/L (7-15); Blood Urea Nitrogen* 18 mg/dL (7-30); Carbon Dioxide* 24 mmol/L (20-32); Creatinine* 0.8 mg/dL (0.5-1.5); Est. Creatinine Clearance* 55.27; Estimated Glomerular Filt Rate 82 ml/min
[2024-03-29 16:24] LABS: Calcium* 9.2 mg/dL (8.4-10.6); Glucose* 98 mg/dL (60-115)
[2024-03-29 16:37] LABS: Troponin I* < 0.01 ng/mL (0.01-0.04)
[2024-03-29 16:46] LABS: Troponin, Point-of-Care* 0.01 ng/ml (0.01-0.04)
== END 2024-03-29 17:00 | disposition home or self-care (01) ==
PROVIDERS: Emergency Provider Internal Medicine; PCP Family Medicine
DX: R07.9 Chest pain, unspecified (principal)
CPT/HCPCS: 36415; 71045; 80048; 84484; 85025; 93005; 94761; 99283; 99284; 99285

== ENCOUNTER 2024-06-05 09:30 | Outpatient (RCR) | payer OTHER, SELFPAY ==
--- NOTE | 2024-01-23 19:54 | PT.OPDNX ---
PT [facility] Daily Note PT [facility] Daily Note Start: 01/16/24 07:33 Freq: Status: Active Protocol: Document 01/23/24 07:40 ARR (Rec: 01/23/24 09:00 ARR [id number]) E-signed By Mervat Stein DPT PT [facility] Daily Progress Note Visit Information Note Type Daily Note,Re-Evaluation Visit Number 1 Cancellation Note Cancelled Documentation Eval: 01/16/24 // re-eval 01/22 POC 1 x 10 / x 10 Insurance Information Insurance Information/Comments [facility] Diagnosis M76.891 hamstring tendonitis of right thigh M25.561, G89.29 chronic pain of right knee M17.11 arthritis of right knee M25.562, G89.29 chronic pain of left knee M54.50, G89.29 chronic midline low back pain without sciatica Knee, hamstring tendonitis program PF pain with minimal DJD Hip and lumbar stability Treating Diagnosis M25.561 right knee pain M25.562 left knee pain M54.16 lumbar radiculopathy M25.552 left hip pain Referring Citlali Mo PA. Rob Muñoz MD Subjective Subjective On Sat Am this past wknd, turned to pick something off a chair and heard a rip in L glut. Was standing rotating/ twisting through LE's. Went to ER, xray was negative. Saw PCP Saturday AM. Saw bruising last night in glut. -Location of pain: lateral hip to groin. Can burn into L buttock area. -Increases in pain putting weight through L LE, some turning of hip putting leg up on leg. Home Exercise Home Exercise Comments Access Code: [email or web address] URL: [email or web address] Date: 01/16/2024 Prepared by: Mervat Stein Exercises - Supine Lower Trunk Rotation - 1 x daily - 5-7 x weekly - 6-8 reps - Clam - 1 x daily - 5-7 x weekly - 2 sets - 10-12 reps - Nerve Flossing - 1 x daily - 5-7 x weekly - 8-10 reps Objective Other/Pertinent Objective Re-eval 01/23/24 -Palpation: hyperalgesia and TTP into lateral hip. with visible bruising and palpable swelling. TTP also just posterior to GT over bursa and over gluteal tendons -SLS: pain on L lateral hip -MMT: hip flexion 4- L / 4+ R. IR 3+ L with pain 4- R. ER 4- bilat. -PROM: IR L <10 / 40R. ER 70 L / 60 R. Flexion 110 L / 130 R Eval 01/16/24 Posture: L IC higher than R by 1 thumbwidth R lateral shift . No change in pain with correction. Increased with OP ea way. Correction to the L ( sh) no changes in pain but with increasing to the R (sh) inc?d distal pain. Palpation: TTP globally throughout all tissues of knee including MCL, pes anserine, adductor from origin to insertion, posterior knee R>>L SLS (30 sec): able to hold 30 sec with moderate pelvic drop L side. <15 sec on R side. Posterior knee pain on L /R Gait: WNL OTHER: -Heel/tip toe walking -/- -Seated slump +/- -Passive SLR: + R for LBP and R LE pain inc?d with ankle DF and hip adduction / + L for LBP RANGE OF MOTION: Lumbar ROM: -Flx: fingertips to ankles reduced LS/TS mobility. -Ext: 50% reduced segmental mobility. No changes in pain LE ROM (R/L): -Hip ER90: 80 L / 60 R -Hip IR90: 5 L /30 R -Hip flex: 110 bilat -Knee Flx: WNL with pain OP end range -Knee Ext: 0 with pain OP end range STRENGTH: LE Strength (R/L) -Hip abduction: 2+ / 3 -Knee flexion, extension 4+ bilat -Hip flexion 4 bilat SPECIAL TESTS: LE Flexibility (R/L) -Hamstring: -/- -Piriformis: +/- -Prone knee bend: nt Knee Ligamentous (R/L) -Varus 0: +/- -Valgus 0: -/- Knee Meniscus: (R/L) -Violetta?s: +/- -Joint Line Palpation: +/+ Knee Patella: (R/L) -VMO coordination: -/- -Patella glides: WNL Patient Instructed in Risks/Benefits Yes Therapeutic Exercise Therapeutic Exercise Minutes (minutes) 15 Therapeutic Exercise: To Restore TE: Indicated for improvement Functional Status in strengthening and mobility. -Handouts with written instructions and photographs of exercises were issued to the patient for exercises to be included in HEP. Answered patient questions regarding POC, and mobility/stretches to perform if pain occurs -Hips wide IR/ER x 6 reps -KTC 2 x 20-30 sec -GS 10 x 3-5 holds Education: -ice 2x/day 15-20 min Manual Therapy Techniques Manual Therapy Minutes (minutes) 20 Manual Therapy Techniques MT: indicated for improving joint mobility, reducing tissue irritability, and improving range of motion. -STM and desensitzation into L lateral glut, piriformis, deep hip rotators -Kinesiotape 1 strip with 4-5 fingers from mid/upper thigh to ankle (lateral L hip) with 0-20% tension over edematous areas (L hip) anchor with no tension above area of swelling with some of the fan strips crossing over one another. Activated Adhesive. Patient was educated on wear time, bathing, drinking extra fluids and to monitor for skin irritation and to take it off it skin irritation occurs. Patient was also educated on how to take tape off. Other Interventions Provided Other Interventions Provided Re-eval as documentation noted above Other Interventions Untimed Minutes 15 Treatment Minutes Untimed Code Treatment Minutes 15 Timed Code Treatment Minutes 35 Total Treatment Time 50 Billing Units Manual Therapy Units 1 Therapeutic Exercise Units 1 Re-Evaluation Units 1 Assessment/Impression Assessment/Impression Pt is a 63 y/o female who returns to PT for 2nd session with report of severe flare of L hip pain after standing/ pivoting through a planted L LE. Per pt ER noting negative x-ray imaging. Returned to PCP , noting provider feels possibly due to gluteal tear. It would seem unlikely that a planted L LE would cause proximal tissue compromise, however, pt does have notable lateral hip bruising with local swelling over lateral hip, possibly indicating myofascial pathology of gluteals. Special testing including MMT is strong but weak. General hip irritation at end range all planes but no significant difference in total ROM as compared to initial evaluation. Will need continued reassessment as pt progresses during PT. Due to change in status since last session re-evaluation was warranted with updated goals below and diagnoses codes updated above as well. Pt to benefit from continued PT at a frequency of 1x/wk x 10 wks. 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 Signs and symptoms likely indicating / consistent with intra-articular pathology with positive valgus, McMurrays and jt line palpation. Cannot fully rule out LS radiculopathy with positive seated slump, passive SLR, and repeated mvmt testing. Patient also has notable objective findings including glut weakness, R hip tightness also likely contributing to the problem. Patient is a good candidate for skilled therapy to target deficits described above. Skilled PT intervention is necessary for use of therapeutic exercise manual therapy, neuromuscular re- education, gait training, and therapeutic activity. Functional impairments include difficulty with: walking. See appropriate sections of PT eval for complete list of goals and POC. D/C plan and criteria is for pt to achieve the goals as listed below or until max rehab potential is met. Pt was agreeable with plan of care and goals established. Short session because pt needed to leave by 820 am Plan of Care Physical Therapy Goals STG (within 5 wks) 1) Pt will initiate HEP without increased pain/ symptoms 2) Pt will demonstrate ability to isometrically activate TA and gluts with minimal compensations in order to improve lumbopelvic stability 3) Pt will report at least 30% improvement in pain/symptoms since start of PT for return to PLOF 4) Pt will demonstrate non- antalgic gait to show reduced hip irritability - new goal LTG (within 10 wks) 1) Pt will be indep with HEP for penitentiary management of pain/symptoms 2) Pt will demonstrate lumbar spine AROM without reproduction of concordant sign for improved ability to complete linesperson. 3) Pt will report at least 60% improvement in pain/symptoms since start of PT for return to PLOF 4) Patient will report ability to start lower body strengthening with product trainer at the gym without flares of pain for improved quality of life 5) Pt will report at least 80% improvement in L hip pain since injury for return to PLOF without limitation - new goal 01/22 Daily Plan of Care Comments review HEP -SLR, bridges, clams, TA strengthening Recertification Information Initial Certification Date 01/16/24 Recertification Start Date 01/23/24 Reasons to Continue Skilled Therapy Pt is a 63 y/o female who returns to PT for 2nd session with report of severe flare of L hip pain after standing/ pivoting through a planted L LE. Per pt ER noting negative x-ray imaging. Returned to PCP , noting provider feels possibly due to gluteal tear. It would seem unlikely that a planted L LE would cause proximal tissue compromise, however, pt does have notable lateral hip bruising with local swelling over lateral hip, possibly indicating myofascial pathology of gluteals. Special testing including MMT is strong but weak. General hip irritation at end range all planes but no significant difference in total ROM as compared to initial evaluation. Will need continued reassessment as pt progresses during PT. Due to change in status since last session re-evaluation was warranted with updated goals below and diagnoses codes updated above as well. Pt to benefit from continued PT at a frequency of 1x/wk x 10 wks. 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 Signs and symptoms likely indicating / consistent with intra-articular pathology with positive valgus, McMurrays and jt line palpation. Cannot fully rule out LS radiculopathy with positive seated slump, passive SLR, and repeated mvmt testing. Patient also has notable objective findings including glut weakness, R hip tightness also likely contributing to the problem. Patient is a good candidate for skilled therapy to target deficits described above. Skilled PT intervention is necessary for use of therapeutic exercise manual therapy, neuromuscular re- education, gait training, and therapeutic activity. Functional impairments include difficulty with: walking. See appropriate sections of PT eval for complete list of goals and POC. D/C plan and criteria is for pt to achieve the goals as listed below or until max rehab potential is met. Pt was agreeable with plan of care and goals established. Short session because pt needed to leave by 820 am Provider Signature Shows Agreement With POC & Medical Necessity Physician Comment/Change Comment or Changes Physician NPI Number #
--- NOTE | 2024-04-17 09:19 | PT.OPDNX ---
PT [facility] Daily Note PT [facility] Daily Note Start: 01/16/24 07:33 Freq: Status: Active Protocol: Document 04/17/24 08:32 ARR (Rec: 04/17/24 09:18 ARR [email or web address]) E-signed By Mervat Stein DPT PT OP Daily Progress Note Visit Information Note Type Daily Note,Recert/Progress Note Visit Number 10 Running Total Visit Number 11 Cancellation Note Cancelled Documentation Eval: 01/16/24 // re-eval 01/22 / POC extension 04/17 POC 1 x 10 // 1 x 10 / 1 x 8 Insurance Information Medical Diagnosis M76.891 hamstring tendonitis of right thigh M25.561, G89.29 chronic pain of right knee M17.11 arthritis of right knee M25.562, G89.29 chronic pain of left knee M54.50, G89.29 chronic midline low back pain without sciatica Knee, hamstring tendonitis program PF pain with minimal DJD Hip and lumbar stability Treating Diagnosis M25.561 right knee pain M25.562 left knee pain M54.16 lumbar radiculopathy M25.552 left hip pain Referring MD Tobin, ELÍAS Ferreira. Rob Muñoz MD Subjective Subjective -Was gone at [place] - was able to do hills. Seated piriformis stretch KTC and pushing down. Inner thigh/ adductor hurt on the R. - Home Exercise Home Exercise Comments Access Code: [email or web address] URL: [email or web address] Date: 01/16/2024 Prepared by: Mervat Stein Exercises - Supine Lower Trunk Rotation - 1 x daily - 5-7 x weekly - 6-8 reps - Clam - 1 x daily - 5-7 x weekly - 2 sets - 10-12 reps - Nerve Flossing - 1 x daily - 5-7 x weekly - 8-10 reps Objective Other/Pertinent Objective Re-eval 01/23/24 -Palpation: hyperalgesia and TTP into lateral hip. with visible bruising and palpable swelling. TTP also just posterior to GT over bursa and over gluteal tendons -SLS: pain on L lateral hip -MMT: hip flexion 4- L / 4+ R. IR 3+ L with pain 4- R. ER 4- bilat. -PROM: IR L <10 / 40R. ER 70 L / 60 R. Flexion 110 L / 130 R Eval 01/16/24 Posture: L IC higher than R by 1 thumbwidth R lateral shift . No change in pain with correction. Increased with OP ea way. Correction to the L ( sh) no changes in pain but with increasing to the R (sh) inc?d distal pain. Palpation: TTP globally throughout all tissues of knee including MCL, pes anserine, adductor from origin to insertion, posterior knee R>>L SLS (30 sec): able to hold 30 sec with moderate pelvic drop L side. <15 sec on R side. Posterior knee pain on L /R Gait: WNL OTHER: -Heel/tip toe walking -/- -Seated slump +/- -Passive SLR: + R for LBP and R LE pain inc?d with ankle DF and hip adduction / + L for LBP RANGE OF MOTION: Lumbar ROM: -Flx: fingertips to ankles reduced LS/TS mobility. -Ext: 50% reduced segmental mobility. No changes in pain LE ROM (R/L): -Hip ER90: 80 L / 60 R -Hip IR90: 5 L /30 R -Hip flex: 110 bilat -Knee Flx: WNL with pain OP end range -Knee Ext: 0 with pain OP end range STRENGTH: LE Strength (R/L) -Hip abduction: 2+ / 3 -Knee flexion, extension 4+ bilat -Hip flexion 4 bilat SPECIAL TESTS: LE Flexibility (R/L) -Hamstring: -/- -Piriformis: +/- -Prone knee bend: nt Knee Ligamentous (R/L) -Varus 0: +/- -Valgus 0: -/- Knee Meniscus: (R/L) -Violetta?s: +/- -Joint Line Palpation: +/+ Knee Patella: (R/L) -VMO coordination: -/- -Patella glides: WNL Patient Instructed in Risks/Benefits Yes Therapeutic Exercise Therapeutic Exercise Minutes (minutes) 15 Therapeutic Exercise: To Restore TE: Indicated for improvement Functional Status in strengthening and mobility. -Handouts with written instructions and photographs of exercises were issued to the patient for exercises to be included in HEP. Answered patient questions regarding POC, and mobility/stretches to perform if pain occurs -Bridge x 10 reps -Bridge w/ball squeeze x 3 reps - pain -Standing adductor stretch 4 x 5sec holds Manual Therapy Techniques Manual Therapy Minutes (minutes) 25 Manual Therapy Techniques MT: indicated for improving joint mobility, reducing tissue irritability, and improving range of motion. Supine: -STM adductor inner thigh and pes anserine roller tool and hands. Including medial HS Treatment Minutes Timed Code Treatment Minutes 40 Total Treatment Time 40 Billing Units Manual Therapy Units 2 Assessment/Impression Assessment/Impression Progressed HEP for stretching as noted above. Pt able to show improved activity tolerance with less pain flare . MT continued to improve myofascial mobility and reduce pain. Cues throughout for form, breathing. Reduced tissue sensitivity compared to last session over R medial knee/adductor Plan of Care Physical Therapy Goals STG (within 5 wks) 1) Pt will initiate HEP without increased pain/ symptoms - MET 2) Pt will demonstrate ability to isometrically activate TA and gluts with minimal compensations in order to improve lumbopelvic stability - MET 3) Pt will report at least 30% improvement in pain/symptoms since start of PT for return to PLOF - MET 4) Pt will demonstrate non- antalgic gait to show reduced hip irritability - progressing toward LTG (within 10 wks) 1) Pt will be indep with HEP for terminal makeup operator management of pain/symptoms - unmet 2) Pt will demonstrate lumbar spine AROM without reproduction of concordant sign for improved ability to complete biochemical engineer. - unmet 3) Pt will report at least 60% improvement in pain/symptoms since start of PT for return to PLOF - unmet 4) Patient will report ability to start lower body strengthening with small engine trainer at the gym without flares of pain for improved quality of life - unmet 5) Pt will report at least 80% improvement in L hip pain since injury for return to PLOF without limitation - unmet- Daily Plan of Care Comments -Progress glut strengthening, consider HF stretching -COntinue KT? COntinue MT *EXTEND POC Recertification Information Initial Certification Date 01/16/24 Reasons to Continue Skilled Therapy Pt had been seen for right knee pain, L knee pain, lumbar radiculopathy, HS tendonitis for 11 visits from 01/16/24 to during this episode of physical therapy. Focus of therapy on hip ROM, proximal strengthening of gluts and TA. Interventions including ther exercise, manual therapy, neuromuscular re-education. Pt at this time has not yet met all short/group home goals and maximal therapeutic benefit has not yet been reached. Pt continues to have pain limiting walking tolerance. Pt has needed extended time in PT due to multiple areas of focus including L hip and R thigh/ knee. Pt to continue to benefit from ongoing therapy with an extension of current POC 1x/wk for an additional 8 weeks. PT to focus on progressing strength, reducing tissue sensitivity. Provider Signature Shows Agreement With POC & Medical Necessity Physician Comment/Change Comment or Changes Physician NPI Number #
== END 2024-09-10 12:32 | disposition home or self-care (01) ==
PROVIDERS: PCP Family Medicine; Visit Provider Physician Assistant
DX: S76.012S Strain of muscle, fascia and tendon of left hip, sequela (principal); M76.891 Other specified enthesopathies of right lower limb, excluding foot; M17.11 Unilateral primary osteoarthritis, right knee; M76.02 Gluteal tendinitis, left hip; M54.50 Low back pain, unspecified; M25.561 Pain in right knee; M25.562 Pain in left knee; G89.29 Other chronic pain; M54.16 Radiculopathy, lumbar region; M25.552 Pain in left hip; Z51.89 Encounter for other specified aftercare
CPT/HCPCS: 97110; 97112; 97140; 97161; 97164

== ENCOUNTER 2024-07-30 07:26 | Outpatient (CLI) | payer OTHER, SELFPAY ==
--- OUTSIDE RECORDS SUMMARY | 2024-07-29 10:47 | XMS_ITS | Continuity of Care Document ---
Author Name [facility] Organization [facility] Care Team Providers Care Rotary Drill Operator Helper Name Role Phone [facility] Unavailable Unavailable Medications Combined list of outpatient medications from Department of Defense and Veterans Affairs facilities.Medications provided include 1) outpatient medications from the last 15 months, and 2) patient-reported medications. Medication Details Route Status Patient Instructions Prescription Expires Prescription Number Last Dispense Date Ordering Provider Order Date Order Qty Source CELECOXIB (celecoxib) , 200 MG, CAPSULE, ORAL, AUROB[employer]O [employer]ARM, 100 ea. BOTTLE Active [id number] 2023 60 Pharmac y Data Transac tion Service Facilit y CELECOXIB (celecoxib) , 200 MG, CAPSULE, ORAL, AUROBINDO PHARM, 100 ea. BOTTLE Active [id number] 4 2023 60 Pharmac y Data Transac tion Service Facilit y DILTIAZEM 24HR ER (diltiazem HCl), 300 MG, CAP SA 24H, ORAL, OCEANSIDE PHARM, 90 ea. BOTTLE Active [id number] 2023 90 Pharmac y Data Transac tion Service Facilit y DILTIAZEM 24HR ER (diltiazem HCl), 300 MG, CAP SA 24H, ORAL, OCEANSIDE PHARM, 90 ea. BOTTLE Active [id number] 3 2022 90 Pharmac y Data Transac tion Service Facilit y HYDROCODONE -ACETAMINOP HEN (hydrocodon e bitartrate/ acetaminoph en), 5 MG-325MG, TABLET, ORAL, MALLINCKROD T PH, 1000 ea. BOTTLE Active [id number] 4 2023 12 Pharmac y Data Transac tion Service Facilit y Immunizations Combined list of available immunizations from the Department of Defense and Veterans Affairs facilities. Immunization Series Date Given Administered By Site Reaction Lot Number CVX Code Drug Environmental Quality Analyst Status Comments Source COVID-19, mRNA, LNP-S, PF, 100 mcg or 50 mcg dose 2021 HAVRON, [employer] (MOD) Not Given COVID-19, mRNA, LNP-S, PF, 100 mcg or 50 mcg dose DoD COVID-19, mRNA, LNP-S, PF, 100 mcg or 50 mcg dose 2020 HAVRON, [employer] (MOD) Not Given COVID-19, mRNA, LNP-S, PF, 100 mcg or 50 mcg dose DoD Social History Combined list of available smoking, tobacco, and other social history from Department of Defense and Veterans Affairs facilities. Social History Type Response Date Comment [facility] e This section is an empty social history section. DoD
--- NOTE | 2024-07-30 07:15 | CRLHL7_ITS ---
For Patients: As a result of the Cures Act, medical imaging exams and procedure reports are released immediately into your electronic medical record. You may view this report before your referring provider. If you have questions, please contact your health care provider. INDICATION: Hypertension TECHNIQUE: Grayscale, color Doppler and power Doppler evaluation of both kidneys and renal arteries performed. COMPARISON: None available FINDINGS: BILATERAL RENAL ARTERY DUPLEX ULTRASOUND ABDOMINAL AORTA: Peak systolic velocity = 57 cm/s. No aortic aneurysm. RIGHT KIDNEY: 10.6 cm in length. There is no hydronephrosis. Hyperechoic nonshadowing focus within the right kidney measures 6 x 5 x 7 millimeters. Peak systolic velocity = 115 cm/second Renal artery to aortic peak systolic velocity ratio = 2.0 Resistive indices: 0.6 Renal vein = patent LEFT KIDNEY: 10.5 cm in length. There is no hydronephrosis. Peak systolic velocity = 81 cm/second Renal artery to aortic peak systolic velocity ratio = 1.4 Resistive indices: 0.7 Renal vein = patent IMPRESSION: No evidence of significant renal artery stenosis. 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 Dictated by Stan Frausto MD @ 07/30/2024 10:47:37 AM (Electronically Signed)
== END 2024-07-30 07:27 | disposition home or self-care (01) ==
PROVIDERS: PCP Family Medicine; Visit Provider Internal Medicine Nephrology
DX: I10 Essential (primary) hypertension (principal); N20.0 Calculus of kidney
CPT/HCPCS: 76775; 93975

== ENCOUNTER 2024-12-31 07:30 | Outpatient (RCR) | payer OTHER, SELFPAY | END 2025-01-06 07:19 | disposition home or self-care (01) | PROVIDERS: PCP Family Medicine; Visit Provider Student in an Organized Health Care Education/Training Program | DX: S49.91XA Unspecified injury of right shoulder and upper arm, initial encounter (principal); Z51.89 Encounter for other specified aftercare | CPT/HCPCS: 97110; 97140; 97161 ==